=== PATIENT | female | born 1990 | race Caucasian/White ===

== ENCOUNTER 2017-09-02 12:48 | Outpatient (CLI) | payer OTHER ==
--- NOTE | 2017-09-02 14:25 | ULT ---
OB ULTRASOUND: HISTORY: anatomy evaluation. FINDINGS: A single live intrauterine gestation was seen with measurements corresponding to an estimated gestat ional age of 27 weeks 2 days and JC at 11/30/17. The estimated weight measures 1052 gm or 2 po unds and 5 ounces. The cervical length measures 4.2 cm in length. Measurements as follows: BPD 6.74 cm, 27 weeks 1 day HC 25.50 cm, 27 weeks 5 days AC 23.03 cm, 27 weeks 3 days FL 5.03 cm, 27 weeks 0 days heart rate measures 144 b.p.m. SHAYY measures 12.4 cm. Placental is posteriorly located withou t evidence of placenta previa. A 3-vessel cord, cord insertion, kidneys, bladder, stomach, 4-chamber heart, lateral ventricle s, cerebellum, spine, lips/nose, upper and lower extremities are visualized. No definite anom alies are seen. IMPRESSION: Single live intrauterine of 27 weeks 2 days and estimated date of delivery at 11/30/17. POS: [facility]
== END 2017-09-02 12:49 | disposition home or self-care (01) ==
LOC: ULT 12:48
PROVIDERS: ATTEND Family Medicine
DX: Z33.1 Pregnant state, incidental (principal); Z3A.27 27 weeks gestation of pregnancy
CPT/HCPCS: 76805

== ENCOUNTER 2017-11-20 02:09 | Inpatient (IN) | payer OTHER ==
[2017-11-20 02:46] VITALS: BMI 30.9
[2017-11-20] MEDS ORDERED: Ondansetron HCl/PF 4 MG/2 ML Vial IVP PRN ×2 (03:19→09:17)
[2017-11-20] MEDS ORDERED: Acetaminophen 500 MG TAB PO PRN (03:19)
[2017-11-20] MEDS ORDERED: Promethazine HCl 25 MG/ML VIAL IM PRN (03:19)
[2017-11-20] MEDS ORDERED: Lactated Ringer's 1,000 ML IV SCH (03:19)
[2017-11-20] MEDS ORDERED: Misoprostol 200 MCG TAB RC PRN (03:30)
[2017-11-20] MEDS ORDERED: Ibuprofen 800 MG TAB PO PRN (03:30)
[2017-11-20] MEDS ORDERED: Lidocaine 1% (PF) 30 ML VIAL SC PRN (03:30)
[2017-11-20] MEDS ORDERED: LR 500 ML/Oxytocin 10 units 500 ML IV SCH ×2 (03:30)
[2017-11-20] MEDS ORDERED: Fentanyl 4 mcg/Marc 0.1% Cadd 100 ML ONE (03:43)
[2017-11-20 03:49] LABS: Hemoglobin 10.4 g/dL (12.0-16.0); Mean Corpuscular HGB CONC 33.4 g/dL (32.0-36.0); Mean Corpuscular Hemoglobin 30.2 pg (27.0-31.0); Mean Corpuscular Volume 90.7 fl (81.0-99.0); Mean Platelet Volume 9.2 fL (7.4-10.4); Platelet Count 187 thou/uL (130-400); RBC Distribution Width 12.9 % (11.5-14.5); Red Blood Cell (RBC) Count 3.43 mill/uL (4.20-5.40); White Blood Cell (WBC) Count 9.6 thou/uL (4.8-10.8)
[2017-11-20] MEDS ORDERED: Acetaminophen 325 MG TAB PO PRN (04:03)
[2017-11-20] MEDS ORDERED: ePHEDrine/0.9% NaCl/PF SYRINGE 50 mg/10 ml SLOW IVP PRN (04:03)
[2017-11-20] MEDS ORDERED: diphenhydrAMINE 50 MG/ML VIAL IVP PRN (04:03)
[2017-11-20] MEDS ORDERED: Naloxone HCl 0.4 mg/ml Vial IVP PRN ×2 (04:03)
[2017-11-20] MEDS ORDERED: Lactated Ringer's 500 ML IV PRN (04:03)
[2017-11-20] MEDS ORDERED: Eucerin (Mineral Oil/Petrolatum,White) 30 gm Jar TOP PRN (04:03)
[2017-11-20] MEDS ORDERED: Communication Order-Pharmacy FS SCH (04:15)
[2017-11-20] MEDS ORDERED: Fentanyl 4mcg/Marcaine 0.1% Cassette 100 ML EPIDURAL SCH (04:15)
[2017-11-20 04:33] LABS: HBSAg Index 0.17 S/CO (0-0.99); Hep B Surf Ag Non-Reactive S/CO (NonReactive)
[2017-11-20] MEDS: LR / Pitocin 40 units/1000 ml 40 UNITS/1,000 ML BAG IV SCH ×2 (06:47→07:38)
[2017-11-20] MEDS ORDERED: Bisacodyl 10 MG SUPP PR PRN (09:17)
[2017-11-20] MEDS ORDERED: Benzocaine/Menthol 20-0.5% 60 ML CAN TOP PRN (09:17)
[2017-11-20] MEDS ORDERED: Preparation H Ointment 28 GM TUBE PR PRN (09:17)
[2017-11-20] MEDS ORDERED: diphenhydrAMINE 25 MG CAP PO PRN (09:17)
[2017-11-20] MEDS ORDERED: Milk Of Magnesia 30 ML UDCUP PO PRN (09:17)
[2017-11-20] MEDS ORDERED: LR / Pitocin 40 units/1000 ml 1,000 ML IV SCH (09:17)
[2017-11-20] MEDS ORDERED: Acetaminophen/Codeine 30-300mg Tablet PO PRN (09:17)
[2017-11-20] MEDS ORDERED: HYDROcodone/Acetaminophen 5/325 mg Tablet PO PRN (09:17)
[2017-11-20] MEDS ORDERED: Lanolin Ointment 7 GM TUBE TOP PRN (09:17)
[2017-11-20] MEDS ORDERED: Docusate Calcium (SURFAK) 240 MG CAP PO SCH (09:45)
[2017-11-20] MEDS ORDERED: Ferrous Sulfate 325 MG TAB PO SCH (09:45)
[2017-11-20] MEDS ORDERED: Prenatal Vitamin 1 TAB PO SCH (09:45)
[2017-11-20] MEDS: Ibuprofen 800 MG TAB PO SCH ×2 (14:17→21:24)
[2017-11-20] MEDS: Ferrous Sulfate 325 MG TAB PO SCH (16:31)
[2017-11-20] MEDS: Docusate Calcium (SURFAK) 240 MG CAP PO SCH (21:24)
[2017-11-21] MEDS: Ibuprofen 800 MG TAB PO SCH ×2 (06:01→14:07)
[2017-11-21] MEDS ORDERED: Prenatal Vitamin 1 TAB PO SCH (09:00)
[2017-11-21] MEDS ORDERED: FLU VACC QS2017-18 36 mo. & older 0.5 ML SYRINGE IM ONE (09:00)
[2017-11-21] MEDS: Docusate Calcium (SURFAK) 240 MG CAP PO SCH (09:09)
[2017-11-21] MEDS: Ferrous Sulfate 325 MG TAB PO SCH (09:09)
[2017-11-21 11:21] VITALS: BP 108/62; TEMP 98.4
== END 2017-11-21 14:50 | disposition home or self-care (01) | DRG 775 ==
LOC: L&D/OP 02:09 → L&D 03:30 → 3SW 08:56
PROVIDERS: ADMIT Family Medicine; ATTEND Family Medicine
PROC: 10E0XZZ Delivery of Products of Conception, External Approach (ICD-10-PCS; principal; 2017-11-20)
DX: O80 Encounter for full-term uncomplicated delivery (principal); Z37.0 Single live birth; Z3A.39 39 weeks gestation of pregnancy
CPT/HCPCS: 36415; 51702; 85027; 87340; 99285